=== PATIENT | female | born 1945 | race Two or more races ===

== ENCOUNTER → 2017-03-17 | Outpatient (CLI) | payer OTHER | END | disposition home or self-care (01) | LOC: CDC 12:42 | DX: Z01.810 Encounter for preprocedural cardiovascular examination (principal); S82.031A Displaced transverse fracture of right patella, initial encounter for closed fracture; I44.0 Atrioventricular block, first degree; R94.31 Abnormal electrocardiogram [ECG] [EKG] | CPT/HCPCS: 93000 ==